=== PATIENT | male | born 1980 | race Caucasian/White ===

== ENCOUNTER 2017-11-11 13:19 | Emergency (ER) | payer BC ==
[~2017-11-11] VITALS: Ht 182.9 cm; Wt 86.2 kg
[2017-11-11 15:01] LABS: *BILIRUBIN,URIN NEGATIVE (NEGATIVE); *BLOOD, URINE NEGATIVE (NEGATIVE); *CLARITY,URINE CLEAR (CLEAR); *COLOR,URINE YELLOW (YELLOW); *KETONES,URINE NEGATIVE (NEGATIVE); *PROTEIN,URINE NEGATIVE (NEGATIVE); *UROBILINOGEN,URINE 0.2 E.U./dl (NORMAL); LEUKOCYTE ESTERASE ,URINE NEGATIVE (NEGATIVE); NITRITE, URINE NEGATIVE (NEGATIVE); UGLUCOSE NEGATIVE (NEGATIVE)
[2017-11-11 15:05] LABS: RBC,URINE 0-3 /HPF (0-3); WBC,URINE NONE SEEN /HPF (0-3)
[2017-11-11 15:06] LABS: BACTERIA,URINE NONE SEEN /HPF (NONE SEEN); SQUAMOUS EPITHELIAL CELL,UR FEW /HPF (NONE SEEN)
[2017-11-11 15:28] VITALS: BP 142/84
== END 2017-11-11 16:00 | disposition home or self-care (01) ==
LOC: ER 13:21
DX: S39.011A Strain of muscle, fascia and tendon of abdomen, initial encounter (principal); X50.0XXA Overexertion from strenuous movement or load, initial encounter; Y93.89 Activity, other specified; Y99.8 Other external cause status; Y92.89 Other specified places as the place of occurrence of the external cause
CPT/HCPCS: 76870; 81001; 99285; A4663

== ENCOUNTER 2025-03-28 04:46 | Emergency (ER) | payer BC ==
[~2025-03-28] VITALS: Ht 182.9 cm; Wt 83.0 kg
[2025-03-28 05:32] VITALS: BP 111/75; O2SAT 97
== END 2025-03-28 05:26 | disposition home or self-care (01) ==
LOC: ER 04:52
DX: S76.012A Strain of muscle, fascia and tendon of left hip, initial encounter (principal); M79.605 Pain in left leg; X58.XXXA Exposure to other specified factors, initial encounter; Y93.B3 Activity, free weights; Y92.89 Other specified places as the place of occurrence of the external cause; Y99.8 Other external cause status
CPT/HCPCS: A4606; A4663